=== PATIENT | female | born 1960 | race Caucasian/White ===

== ENCOUNTER 2025-08-30 10:28 | Day surgery (SDC) | payer OTHER ==
--- NOTE | 2025-08-30 07:41 | HP ---
HISTORY OF PRESENT ILLNESS: A 64-year-old with persistent lymph node enlargement of the groin since January and also a cyst in the buttock area, drained in the past. Patient did have history of colon cancer with lymph node metastasis in the past. PAST MEDICAL HISTORY: Hypertension, colon cancer, and some reflux. PAST SURGICAL HISTORY: She had colon resection back in 1980, tonsillectomy in the past, D and C in the past, hand surgery in the past, skin cancer excision in the past. FAMILY HISTORY: Heart disease. SOCIAL HISTORY: No smoking. No alcohol abuse. MEDICATIONS: Metoprolol, Montelukast, and Nexium. ALLERGIES: Augmentin, baclofen, Fosamax. REVIEW OF SYSTEMS: Twelve systems reviewed. No chest pain or palpitations. Other systems negative or noncontributory as above and per preadmission questionnaire. PHYSICAL EXAMINATION: GENERAL: No acute distress. VITAL SIGNS: Height 5 feet 4 inches. BMI 17.16. HEENT: Sclerae nonicteric. NECK: No JVD. CHEST: Equal excursion. Nonlabored breathing. CARDIOVASCULAR: Regular rate and rhythm. ABDOMEN: Soft. EXTREMITIES: No cyanosis. No edema. NEUROLOGIC: Alert and oriented. Moving all extremities symmetrically. PSYCHIATRIC: Appropriate mood and affect. SKIN: Right buttock cyst area, left groin lymph node enlarged. IMPRESSION: Enlarged persistent lymph node of left groin, needs excision for that as well as cyst buttock area needs to be excised. Risk of bleeding and infection, possibly requiring packing; risk of hematoma, seroma, lymphocele formation; risk of aches, pains, burning, or numbness; risk of anesthesia, DVT, PE, pneumonia; risk of lymphedema, but not limited to. We will proceed with excisional biopsy of left groin lymph node and right buttock cyst site as an outpatient under general anesthetic. Otherwise, continue medications for hypertension and reflux.
[2025-08-30] MEDS ORDERED: Lactated Ringers 1,000 ML IV ONE ×2 (10:32→12:25)
[2025-08-30 10:41] VITALS: RESP 18
[2025-08-30] MEDS: Lactated Ringers 1,000 ML IV SCH (10:41)
[2025-08-30] MEDS ORDERED: SUBLIMAZE 100 MCG/2 ML ONE (12:24)
[2025-08-30] MEDS ORDERED: propofoL IV ONE (12:24)
[2025-08-30] MEDS ORDERED: Versed 2 MG/2 ML Injection ONE (12:24)
[2025-08-30] MEDS ORDERED: Sensorcaine 0.25% 10 ML ONE (12:25)
[2025-08-30] MEDS ORDERED: Xylocaine-Mpf 2% 5 Ml Vial ONE (12:34)
[2025-08-30] MEDS ORDERED: PHENYLEPHRINE HCL ONE (12:40)
[2025-08-30] MEDS ORDERED: CLINDAMYCIN-D5W 900 MG/50 ML*** 900 MG/50 ML BAG IV ONE (12:48)
[2025-08-30 14:23] VITALS: O2SAT 100
[2025-08-30 14:31] VITALS: BP 119/73; PULSE 56; TEMP 97.8
--- NOTE | 2025-09-01 10:55 | OP ---
SURGERY DATE/TIME: 08/30/2025 [id number] PREOPERATIVE DIAGNOSES: 1) Persistently enlarged left inguinal lymph node. 2) Persistent right buttock ruptured cyst site. POSTOPERATIVE DIAGNOSES: 1) Persistently enlarged left inguinal lymph node. 2) Persistent right buttock ruptured cyst site. PROCEDURE: 1) Excisional biopsy of left inguinal lymph node. 2) Excisional biopsy of right buttock ruptured cyst site (approximately 1.5 cm with margins). SURGEON: Naldo Adam MD ANESTHESIA: General, 0.25% Marcaine local. ESTIMATED BLOOD LOSS: Minimal. INDICATIONS: Consent obtained. DESCRIPTION OF PROCEDURE AND FINDINGS: Site was confirmed and marked in the preoperative holding area. She was taken to the operating room. General anesthesia induced. She was prepped and draped in usual sterile fashion. After official time-out and no disagreement in planned procedure, in the lateral position, starting first with the ruptured cyst site, dissection was carried out after official time-out and no disagreement in planned procedure. Total padding positioned per anesthesia and OR staff, excised in spindle-shaped fashion down around this what seemed to be a cyst site. Had some recurrent drainage from this area as well as ruptured cyst site, measured about 1.5 cm margin, passed off for pathology. There was no evidence of any residual cyst material in the wound. Wound was irrigated out. Subcutaneous closed with 3-0 Vicryl. They did not have 4-0 Vicryl at the time, so 4-0 Monocryl was used to close the skin. A couple of layers of Dermabond. Sterile dressing applied. Patient was then repositioned in supine position after dressing, she was re-prepped and draped in usual sterile fashion. No disagreement in the planned procedure. Transverse incision made directly overlying the left inguinal node. Dissection carried down through the subcutaneous and in addition to the node which was carefully sealed in lymphatics and arterials had been also going into it and out of it with the handheld LigaSure device. Node was passed off, measured about 1.5 cm size, passed off for pathology. Good hemostasis noted. The deep fascia was closed with 3-0 Vicryl, subcutaneous closed with 3-0 Vicryl, skin closed with 4-0 Vicryl in running subcuticular fashion. Steri-Strips, sterile dressing applied; 0.25% Marcaine local had been injected along both these wounds. Patient tolerated the procedure well. Findings discussed with family out in the waiting room. She will be transferred in the Recovery in stable condition.
== END 2025-08-30 14:44 | disposition home or self-care (01) ==
LOC: SDC 10:28
PROVIDERS: ATTEND Surgery
DX: L72.0 Epidermal cyst (principal); R59.0 Localized enlarged lymph nodes; L02.31 Cutaneous abscess of buttock; Z85.038 Personal history of other malignant neoplasm of large intestine